=== PATIENT | female | born 1935 | race Caucasian/White ===

== ENCOUNTER 2019-06-07 22:32 | Emergency (ER) | payer MEDICARE, OTHER ==
[~2019-06-07] VITALS: Ht 167.6 cm; Wt 81.6 kg
[2019-06-07] MEDS ORDERED: ONDANSETRON HCL/PF - ER 4 MG/2 ML VIAL IV ONE (23:00)
[2019-06-07] MEDS ORDERED: ASPIRIN 325 MG TABLET PO ONE (23:00)
[2019-06-07] MEDS ORDERED: NITROGLYCERIN 0.4 MG/TAB BOTTLE SL ONE (23:00)
--- NOTE | 2019-06-07 23:13 | NUR ---
BIBFAMILY C/O ANTERIOR CP NON RADIATING AND SOB X2 DAYS, PROGRESSIVELY GETTING WORSE. +DIZZINESS -NAUSEA/VOMITTING. ALSO C/O UPPER BACK PAIN. PT IS AOOX 4. NO RESP DISTRESS NOTED UPON RECEIVEDNG PT, EVEN AND UNLABORED BREATHING. MD AT BEDSIDE FOR EVAL. ORDERS RECEIVED NOTED AND CARRIED OUT
[2019-06-07 23:15] LABS: BASOPHILS % (AUTO) 0.5 % (0.0-2.0); EOSINOPHILS % (AUTO) 0.1 % (0.0-6.0); HEMATOCRIT 47 % (33-45); HEMOGLOBIN 15.3 g/dL (11.5-14.8); LYMPHOCYTES # (AUTO) 0.5 /CMM (0.8-4.8); LYMPHOCYTES % (AUTO) 7.2 % (20.0-44.0); MEAN CORPUSCULAR HGB CONC 33 g/dl (31.0-36.0); MEAN CORPUSCULAR VOLUME 99 fL (82-100); MONOCYTES # (AUTO) 0.3 /CMM (0.1-1.30); MONOCYTES % (AUTO) 4.6 % (2.0-12.0); NEUTROPHILS # (AUTO) 5.8 /CMM (1.8-8.9); NEUTROPHILS % (AUTO) 87.6 % (43.0-81.0); PLATELET COUNT (AUTO) 195 /CMM (150-450); RED BLOOD CELL COUNT(AUTO) 4.72 MIL/uL (4.0-5.2); WHITE BLOOD COUNT (AUTO) 6.6 K/uL (4.3-11.0)
[2019-06-07 23:21] LABS: CALCIUM, SERUM 8.7 mg/dL (8.5-10.1); CARBON DIOXIDE 27 mmol/L (21-32); CHLORIDE 100 mmol/L (98-107); GLUCOSE 233 mg/dL (74-106); SODIUM SERUM 136 mmol/L (136-145); UREA NITROGEN, BLOOD 20 mg/dL (7-18)
[2019-06-07] MEDS ORDERED: ONDANSETRON HCL/PF 4 MG/2 ML VIAL ONE (23:52)
[2019-06-07] MEDS ORDERED: NITROGLYCERIN 0.4 MG/TAB BOTTLE ONE (23:53)
[2019-06-07] MEDS ORDERED: ASPIRIN 325 MG TABLET ONE (23:53)
[2019-06-08 00:22] LABS: ALBUMIN 3.8 g/dL (3.4-5.0); BILIRUBIN,DIRECT 0.7 mg/dL (0.0-0.2); BILIRUBIN,TOTAL 1.1 mg/dL (0.2-1.0); MAGNESIUM 2.1 mg/dL (1.8-2.4); TOTAL PROTEIN, SERUM 7.7 g/dL (6.4-8.2)
--- NOTE | 2019-06-08 01:40 | NUR ---
Patient discharged to home in stable condition. Written and verbal after care instructions given. Patient verbalizes understanding of instruction.IV removed. Catheter intact and site benign. Pressure and 4x4 applied to site. No bleeding noted. Pt ambulatory with a steady gait
[2019-06-08 01:53] VITALS: BP 165/67
== END 2019-06-08 01:54 | disposition home or self-care (01) ==
LOC: ER 22:33
DX: J18.9 Pneumonia, unspecified organism (principal); I10 Essential (primary) hypertension; R11.2 Nausea with vomiting, unspecified
CPT/HCPCS: 36415; 71045; 80048; 80076; 83690; 83735; 83880; 84484; 85025; 93005 ×2; 96374; 99284; J2405

== ENCOUNTER 2020-02-15 18:20 | Emergency (ER) | payer MEDICARE, OTHER ==
[~2020-02-15] VITALS: Ht 162.6 cm; Wt 75.7 kg
[2020-02-15] MEDS ORDERED: MULT-447 PO (18:33)
[2020-02-15] MEDS ORDERED: AMLO10TA7 PO (18:33)
[2020-02-15] MEDS ORDERED: ASPI-1169 PO (18:33)
[2020-02-15] MEDS ORDERED: DIAZ5TAB4 PO (18:33)
--- NOTE | 2020-02-15 18:35 | NUR ---
Julissa vital in EDM - 02/15/20 at 1905 by FRANKI IV line established, blood drawn from line and sent to lab. Prosperd patient for a urine sample, per patient, she's not ready to give a urine sample at this time.
--- NOTE | 2020-02-15 18:40 | NUR ---
c/o chills and fever on and off x 2 months. Patient a/ox4, breathing even and unlabored, no sob noted, patient also c/o loss of taste. Changed into a gown, attached to the monitoring coordinator. Ambulatory with steady gait.
--- NOTE | 2020-02-15 18:55 | NUR ---
IV line established, blood drawn from line and sent to lab. Prosperd patient for a urine sample, per patient, she's not ready to give a urine sample at this time.
[2020-02-15 19:14] LABS: CALCIUM, SERUM 8.6 mg/dL (8.5-10.1); CARBON DIOXIDE 25 mmol/L (21-32); CHLORIDE 102 mmol/L (98-107); GLUCOSE 133 mg/dL (74-106); POTASSIUM 3.9 mmol/L (3.5-5.1); SODIUM SERUM 136 mmol/L (136-145); UREA NITROGEN, BLOOD 13 mg/dL (7-18)
[2020-02-15 19:19] LABS: ALANINE AMINOTRANSFERASE 79 U/L (12-78); ALBUMIN 3.2 g/dL (3.4-5.0); ALKALINE PHOSPHATASE 139 U/L (46-116); ASPARTATE AMINOTRANSFERASE 38 U/L (15-37); BILIRUBIN,DIRECT 0.1 mg/dL (0.0-0.2); BILIRUBIN,TOTAL 0.2 mg/dL (0.2-1.0); TOTAL PROTEIN, SERUM 6.9 g/dL (6.4-8.2)
--- NOTE | 2020-02-15 19:46 | NUR ---
SENT TO CT.
--- NOTE | 2020-02-15 19:48 | NUR ---
URINE COLLECTED AND SENT TO THE LAB.
[2020-02-15 19:53] LABS: BASOPHILS # (AUTO) 0.1 /CMM (0.0-0.2); BASOPHILS % (AUTO) 1.2 % (0.0-2.0); EOSINOPHILS % (AUTO) 6.8 % (0.0-6.0); HEMATOCRIT 44 % (33-45); HEMOGLOBIN 14.3 g/dL (11.5-14.8); LYMPHOCYTES # (AUTO) 1.1 /CMM (0.8-4.8); LYMPHOCYTES % (AUTO) 21.5 % (20.0-44.0); MEAN CORPUSCULAR HGB CONC 33 g/dl (31.0-36.0); MEAN CORPUSCULAR VOLUME 99 fL (82-100); MONOCYTES # (AUTO) 0.8 /CMM (0.1-1.30); MONOCYTES % (AUTO) 14.8 % (2.0-12.0); NEUTROPHILS # (AUTO) 2.9 /CMM (1.8-8.9); NEUTROPHILS % (AUTO) 55.7 % (43.0-81.0); PLATELET COUNT (AUTO) 161 /CMM (150-450); RED BLOOD CELL COUNT(AUTO) 4.42 MIL/uL (4.0-5.2); WHITE BLOOD COUNT (AUTO) 5.2 K/uL (4.3-11.0)
[2020-02-15 19:57] LABS: APPEARANCE,URINE CLOUDY (CLEAR); BILIRUBIN,URINE NEGATIVE (NEGATIVE); BLOOD, URINE TRACE-INTA Ery/uL (NEGATIVE); COLOR,URINE YELLOW (YELLOW); KETONES,URINE NEGATIVE (NEGATIVE); LEUKOCYTE ESTERASE ,URINE SMALL (NEGATIVE); NITRITE, URINE NEGATIVE (NEGATIVE); PROTEIN,URINE NEGATIVE (NEGATIVE); UGLUCOSE NEGATIVE (NEGATIVE); UROBILINOGEN,URINE 0.2 EU/dL (0.2)
[2020-02-15 20:15] LABS: BACTERIA,URINE 2+ /HPF (None Seen); SQUAMOUS EPITHELIAL CELL,UR 0-2 /HPF (None Seen)
[2020-02-15] MEDS ORDERED: ONDANSETRON HCL/PF - ER 4 MG/2 ML VIAL IV ONE (20:30)
[2020-02-15] MEDS ORDERED: ONDANSETRON HCL/PF 4 MG/2 ML VIAL ONE (20:30)
--- NOTE | 2020-02-15 21:38 | NUR ---
IV removed. Catheter intact and site benign. Pressure and 4x4 applied to site. No bleeding noted.
[2020-02-15 21:56] VITALS: BP 141/76
--- NOTE | 2020-02-15 21:56 | NUR ---
Patient discharged to home in stable condition. Written and verbal after care instructions given. Patient verbalizes understanding of instruction.
== END 2020-02-15 21:57 | disposition home or self-care (01) ==
LOC: ER 18:24
DX: N30.00 Acute cystitis without hematuria (principal); K80.20 Calculus of gallbladder without cholecystitis without obstruction; R94.5 Abnormal results of liver function studies; I10 Essential (primary) hypertension; Z98.890 Other specified postprocedural states; Z79.82 Long term (current) use of aspirin; Z79.899 Other long term (current) drug therapy
CPT/HCPCS: 36415; 71045; 74176; 76705; 80048; 80076; 81001; 83605; 84145; 84484; 85025; 85730; 87040 ×2; 87086; 93005; 96374; 99285; J2405 ×2; 81000-TC

== ENCOUNTER 2020-07-26 12:36 | Inpatient (IN) | payer MEDICARE, OTHER ==
[~2020-07-26] VITALS: Ht 160 cm; Wt 78.9 kg
[~2020-07-26 12:36] MED LIST: AMLO-213 PO; ASPI-1169 PO; DIAZ5TAB4 PO; MULT-447 PO
--- NOTE | 2020-07-26 12:50 | NUR ---
FROM HOME, C/O MIDSTERNAL CHEST PAIN X1 WEEK WITH SOB, +NAUSEA. PS 10/13. PATIENT MAY HAVE BEEN EXPOSED TO COVID LAST WEEK. AFEBRILE AT THIS TIME. PATIENT ASSISTED TO BED, BREATHING EVEN AND UNLABORED, NO SOB NOTED, KEPT COMFORTABLE.
[2020-07-26] MEDS ORDERED: NITROGLYCERIN PACKET 1 GM PACKET ONE (12:53)
[2020-07-26] MEDS ORDERED: ASPIRIN 325 MG TABLET ONE (12:53)
[2020-07-26] MEDS ORDERED: ASPIRIN 81 MG TAB.CHEW ONE (12:57)
[2020-07-26] MEDS ORDERED: ASPIRIN 325 MG TABLET PO ONE (13:00)
[2020-07-26] MEDS ORDERED: NITROGLYCERIN PACKET 1 GM PACKET TD ONE (13:00)
--- NOTE | 2020-07-26 13:12 | NUR ---
IV LINE ESTABLISHED, BLOOD DRAWN AND SENT TO LAB.
[2020-07-26 13:14] LABS: BASOPHILS # (AUTO) 0.1 /CMM (0.0-0.2); BASOPHILS % (AUTO) 1.2 % (0.0-2.0); HEMATOCRIT 46 % (33-45); HEMOGLOBIN 15.2 g/dL (11.5-14.8); LYMPHOCYTES # (AUTO) 1.5 /CMM (0.8-4.8); LYMPHOCYTES % (AUTO) 31.6 % (20.0-44.0); MEAN CORPUSCULAR HGB CONC 33 g/dl (31.0-36.0); MEAN CORPUSCULAR VOLUME 99 fL (82-100); MONOCYTES # (AUTO) 0.5 /CMM (0.1-1.30); MONOCYTES % (AUTO) 11.7 % (2.0-12.0); NEUTROPHILS # (AUTO) 2.4 /CMM (1.8-8.9); NEUTROPHILS % (AUTO) 52.5 % (43.0-81.0); PLATELET COUNT (AUTO) 239 /CMM (150-450); RED BLOOD CELL COUNT(AUTO) 4.64 MIL/uL (4.0-5.2); WHITE BLOOD COUNT (AUTO) 4.6 K/uL (4.3-11.0)
--- NOTE | 2020-07-26 13:16 | NUR ---
ASA CHANGED TO 243MG, PATIENT STS SHE TOOK ASA 81MG THIS AM.
[2020-07-26 13:21] LABS: CALCIUM, SERUM 9.5 mg/dL (8.5-10.1); CARBON DIOXIDE 25 mmol/L (21-32); CHLORIDE 105 mmol/L (98-107); CREATININE 1.1 mg/dL (0.6-1.3); GLUCOSE 109 mg/dL (74-106); SODIUM SERUM 141 mmol/L (136-145); UREA NITROGEN, BLOOD 11 mg/dL (7-18)
[2020-07-26 13:27] LABS: ALANINE AMINOTRANSFERASE 89 U/L (12-78); ALBUMIN 3.5 g/dL (3.4-5.0); ALKALINE PHOSPHATASE 170 U/L (46-116); ASPARTATE AMINOTRANSFERASE 84 U/L (15-37); BILIRUBIN,DIRECT 0.2 mg/dL (0.0-0.2); BILIRUBIN,TOTAL 0.4 mg/dL (0.2-1.0); TOTAL PROTEIN, SERUM 7.4 g/dL (6.4-8.2)
[2020-07-26] MEDS ORDERED: ASPIRIN 81 MG TAB.CHEW PO ONE (13:30)
--- NOTE | 2020-07-26 13:40 | NUR ---
PAGED [facility].
[2020-07-26] MEDS ORDERED: MAGNESIUM HYDROXIDE 30 ML UDC PO PRN (14:00)
[2020-07-26] MEDS ORDERED: ONDANSETRON HCL/PF 4 MG/2 ML VIAL IVP PRN (14:00)
[2020-07-26] MEDS ORDERED: ACETAMINOPHEN 325 MG TABLET PO PRN (14:00)
[2020-07-26] MEDS ORDERED: DIAZEPAM 5 MG TABLET PO PRN (14:00)
[2020-07-26] MEDS ORDERED: ZOLPIDEM TARTRATE 5 MG TABLET PO PRN (14:00)
[2020-07-26] MEDS ORDERED: HYDROCODONE/APAP 5/325MG TABLET PO PRN (14:00)
[2020-07-26] MEDS ORDERED: ENOXAPARIN SODIUM 40 MG/0.4 ML DISP.SYRIN SQ SCH (14:00)
[2020-07-26] MEDS ORDERED: Z GUARD REMEDY 2 OZ OINT TP PRN (14:00)
[2020-07-26] MEDS ORDERED: MAG HYDROX/AL HYDROX/SIMETH 30 ML UDC PO PRN (14:00)
--- NOTE | 2020-07-26 14:13 | NUR ---
covid negative result.
[2020-07-26 14:19] VITALS: BP 169/64
--- NOTE | 2020-07-26 14:29 | NUR ---
BED 103
[2020-07-26] MEDS ORDERED: ENOXAPARIN SODIUM 30 MG/0.3 ML DISP.SYRIN SQ SCH ×2 (15:14→15:30)
--- NOTE | 2020-07-26 15:26 | NUR ---
BEDSIDE REPORT GIVEN TO JEY PHELPS. PATIENT TRANSFERRED TO ROOM 103 VIA ACLS PROTOCOL. IN STABLE CONDITION.
--- NOTE | 2020-07-26 15:45 | NUR ---
Patient AO x 4 just came from ER for new admit but wants to leave with sign AMA, patient stated "No doctor didn't see me and no body telling me that I'm going stay in hospital!" Patient understanding the about risk and consequences involved in leaving the hospital at this time, the benefit of continued treatment and hospitalization. Patient signed AMA, denies any pain or distress. Removed ID band and IV line before patient leave.
[2020-07-27] MEDS ORDERED: MULTIVIT W/MINERALS 1 TAB TABLET PO SCH (09:00)
[2020-07-27] MEDS ORDERED: AMLODIPINE BESYLATE 10 MG TABLET PO SCH (09:00)
[2020-07-27] MEDS ORDERED: ASPIRIN 81 MG TAB.CHEW PO SCH (09:00)
== END 2020-07-26 15:50 | disposition left against medical advice (07) | DRG 313 ==
LOC: ER 12:38 → TELE1 14:44
PROVIDERS: ADMIT Internal Medicine; ATTEND Internal Medicine
DX: R07.89 Other chest pain (principal); Z20.822 Contact with and (suspected) exposure to COVID-19; I10 Essential (primary) hypertension; Z79.82 Long term (current) use of aspirin; Z79.899 Other long term (current) drug therapy; F41.9 Anxiety disorder, unspecified
CPT/HCPCS: 36415; 71045-TC; 80048-TC; 80076-TC; 84484-TC; 85025-TC; 87081-TC; C9803; G0378